=== PATIENT | male | born 1960 | race Caucasian/White ===

== ENCOUNTER 2024-06-23 21:10 | Emergency (ER) | payer OTHER, SELFPAY ==
--- NOTE | 2024-06-23 21:15 | ED.MALEGU ---
HPI - Male Genitourinary General Chief complaint: Urogenital-Male Stated complaint: Can't Urinate Post-Sx Time Seen by Provider: 06/23/24 21:14 History of Present Illness HPI Narrative: 63-year-old male presents with inability to urinate. Had laparoscopic cholecystectomy at [facility] earlier today. He states that he was not been able to urinate since his surgery. This has never happened before. Related Data Previous Rx's Medication Instructions Recorded tamsulosin 0.4 mg capsule 0.4 mg PO DAILY #30 caps 06/23/24 Allergies Allergy/AdvReac Type Severity Reaction Status Date / Time No Known Drug Allergies Allergy Verified 06/23/24 21:22 Patient History Social History Smoking Status: Never smoker Exam Initial Vital Signs Initial Vital Signs: Vital Signs Temperature 98.2 F 06/23/24 21:23 Pulse Rate 102 H 06/23/24 21:23 Respiratory Rate 16 06/23/24 21:23 Blood Pressure 161/93 H 06/23/24 21:23 Pulse Oximetry 97 06/23/24 21:23 Oxygen Delivery Method Room Air 06/23/24 21:23 Const: Awake, alert, no acute distress, nontoxic appearing GI: Soft, Surgical sites clean, dry, intact Skin: Warm, Dry, intact, no rashes Neuro: AO x3, CN II-XII grossly intact, moves all extremities Course Orders Ordered: Discontinued Medications Lidocaine HCl (Lidocaine 2% (Glydo) 6 Ml Gel) 6 ml TOP NOW ONE Stop: 06/23/24 21:27 Last Admin: 06/23/24 21:29 Dose: 6 ml Documented By: MILLIE Vital Signs Vital signs: Vital Signs - 8 hr 06/23/24 21:23 06/23/24 22:22 Temperature 98.2 F 98.2 F Pulse Rate 102 H 83 Respiratory Rate 16 18 Blood Pressure 161/93 H 127/74 Pulse Oximetry 97 97 Oxygen Delivery Method Room Air Room Air MDM - Male Genitourinary MDM Narrative Medical decision making narrative: postoperative urinary retention. Piña placed with drainage of 1 L of clear yellow urine. Patient reports feeling significantly better after Piña placed. Patient was counseled that he would need to keep the catheter in until he is seen by either his surgeon, PCP, or Urology. He was not take Flomax, and he will be started on this medication here in the emergency department. Piña catheter care instructions discussed. Discharge Plan Departure Patient Disposition: Home Clinical Impression: Acute retention of urine Instructions: DI for Urinary Retention in Men Activity Restrictions/Additional Instructions: Take flomax daily. Follow up with your surgeon to see when the catheter can be removed Prescriptions: New tamsulosin 0.4 mg capsule 0.4 mg PO DAILY Qty: 30 0RF Referrals: Dimitrios Briones MD [Physician] - Stand Alone Forms: Patient Portal/API/Survey
[2024-06-23 21:23] VITALS: BP 161/93; PULSE 102; RESP 16; TEMP 36.8; O2SAT 97; BMI 21.8
[2024-06-23] MEDS: LIDOCAINE 2% (GLYDO) 6 ML GEL TOP (21:29)
[2024-06-23 22:22] VITALS: BP 127/74; PULSE 83; RESP 18; TEMP 36.8; O2SAT 97
== END 2024-06-23 22:23 | disposition home or self-care (01) ==
PROVIDERS: Emergency Provider Emergency Medicine
DX: R33.9 Retention of urine, unspecified (principal)
CPT/HCPCS: 51702; 51798; 99283

== ENCOUNTER 2025-02-07 23:28 | Emergency (ER) | payer OTHER, SELFPAY ==
[2025-02-07 23:39] VITALS: BP 142/82; PULSE 69; RESP 16; TEMP 36.4; O2SAT 100; BMI 21.1
--- NOTE | 2025-02-08 00:19 | EKG_ITS ---
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
[2025-02-08 00:53] VITALS: BP 105/64
[2025-02-08 00:54] VITALS: PULSE 54; RESP 20; O2SAT 99
--- NOTE | 2025-02-08 00:54 | DI.CT.S_ITS ---
PROCEDURE: CT ABDOMEN PELVIS W CON INDICATIONS: abd pain, pancreatic mass hx TECHNIQUE: After the administration of intravenous contrast, axial sections acquired from the lung bases to the pubic symphysis. Coronal and sagittal reformats were performed. For radiation dose reduction, the following was used: automated exposure control, adjustment of mA and/or kV according to patient size. COMPARISON: [facility], CT, CT ABDOMEN PANCREATIC PROTOCOL, 03/23/2024, 13:53. FINDINGS: Image quality: Diagnostic. Lower Chest: No significant findings. ABDOMEN: Liver: No solid mass. Gallbladder: Surgically absent. Biliary ducts: No biliary dilation. Pancreas: Ill-defined masslike area within the head/uncinate process with dilatation of the distal pancreatic duct. Spleen: Size is within normal limits. Adrenal Glands: No adrenal nodules. Kidneys and Ureters: No hydronephrosis. No solid mass. No complex renal cystic lesion which requires follow up. Stomach and Bowel: Normal colonic caliber, without significant wall thickening. Moderate to large stool burden. Normal appendix. Peritoneum: No abnormal intraperitoneal fluid. No free air. Mild mesenteric stranding. Ventral Wall: No significant ventral hernia. Abdominal Nodes: Multiple prominent mesenteric lymph nodes appear similar to prior. Vessels: Aorta and inferior vena cava are normal in size. Atherosclerotic vascular calcifications. PELVIS: Pelvic Organs: Prostatomegaly. Bladder: No bladder wall thickening, accounting for underdistention. Pelvic Nodes: No enlarged lymph nodes. Miscellaneous: No inguinal hernias are seen. Bones: No aggressive osseous abnormality. IMPRESSION: 1. Ill-defined masslike area within the head/uncinate process of the pancreas is increased compared to prior. Recommend nonurgent pancreatic protocol CT or MRI for further evaluation. 2. Multiple prominent mesenteric lymph nodes are similar to prior with mild surrounding stranding. Differential includes metastatic disease versus mesenteric panniculitis. Dictated by: Jonah Bajwa M.D. on 02/08/2025 at 1:59 Approved by: Jonah Bajwa M.D. on 02/08/2025 at 2:05
[2025-02-08 01:00] VITALS: BP 108/71; PULSE 58; RESP 24; O2SAT 100
--- NOTE | 2025-02-08 01:04 | PC.NURSE ---
Pt was sitting in hallway chair for IV start. Pt with difficult veins, IV start x 3 unsuccessful. Shortly after, pt became pale, diaphoretic, and woozy. BP 78/45 HR 45. Pt able to stand and transfer to [facility]. Pt roomed, BP improved to 108/71 with HR 58. Pt states he feels better. IV started successfully to L FA.
[2025-02-08 01:06] LABS: Add Manual Diff / Slide Review NO; Hematocrit 42.1 % (41-53); Hemoglobin 14.2 g/dL (13.5-17.5); Lymphocytes Absolute Auto 3200 /uL (1100-4500); Mean Corpuscular HGB Conc 33.8 % (30-36); Mean Corpuscular Hemoglobin 27.4 PG (26-34); Mean Corpuscular Volume 81.1 fL (80-100); Platelet Count 236 X10^3/uL (150-400)
[2025-02-08 01:19] LABS: Alanine Aminotransferase 20 IU/L (<50); Albumin 4.5 g/dL (3.5-5.0); Albumin Globulin Ratio 1.2 (1.0-2.8); Blood Urea Nitrogen 19 mg/dL (9-20); Calcium 9.2 mg/dL (8.4-10.2); Carbon Dioxide 25 mmol/L (22-32); Chloride 103 mmol/L (98-107); Estimated Glomerular Filt Rate > 60 mL/min (>60); Globulin 3.8 g/dL (1.7-4.1); Glucose 118 mg/dL (70-99); Lipase 171 U/L (23-300); Sodium 136 mmol/L (137-145); Total Protein 8.3 g/dL (6.3-8.2)
[2025-02-08 01:26] LABS: HEMOLYSIS 57 (0-50); Potassium 4.0 mmol/L (3.4-5.1)
[2025-02-08 01:27] LABS: Alkaline Phosphatase 78 U/L (38-126)
[2025-02-08 01:30] VITALS: BP 128/72; PULSE 51; O2SAT 100
--- NOTE | 2025-02-08 01:41 | ED_ITS ---
HPI - Abdominal Pain General Chief Complaint: Abdominal Pain Stated Complaint: Abdominal Pain, Back Pain Time Seen by Provider: 02/08/25 00:54 Source: patient Mode of arrival: Ambulatory History of Present Illness HPI narrative: 64-year-old male with history of pancreatic mass first discovered with discomfort epigastrium radiating to the back about one year ago, workup predominantly at [facility] including MRCP and eventually ERCP, had biopsy without confirmation of any cancer, surveillance MRCP being done every 6 months, last MRCP September 2024, has oxycodone to take for this ongoing discomfort, had similar epigastric pain radiating to the back 3 days ago at seemed to get better now with 2 days duration of lower suprapubic bilateral lower abdominal discomfort that feels different. No black or red stools or loose stools. No dysuria or frequency of urination. No testicular pain, no meatal discharge or gross hematuria symptoms. No history of known kidney stones. No history of known prostate problems, prostatitis, prostate enlargement, trouble urinating in the past. No injury trauma or new activities. He took oxycodone that he usually takes for his higher epigastric pain, did not seem to help this lower abdominal pain that is new. Related Data Previous Rx's ?Medication ?Instructions ?Recorded tamsulosin 0.4 mg capsule 0.4 mg PO DAILY #30 caps oxycodone-acetaminophen 7.5 mg-325 1 tab PO Q6H PRN pa in #14 tabs 02/08/25 mg tablet Allergies Allergy/AdvReac Type Severity Reaction Status Date / Time No Known Drug Allergies Allergy Verified 02/07/25 23:44 Exam Narrative Exam Narrative: GENERAL: Well-developed patient, in mild distress. HEAD: Atraumatic. Normocephalic. EYES: Pupils equal round and reactive. Extraocular motions intact. No scleral icterus. No injection or drainage. ENT: Nose without bleeding, purulent drainage. Throat without erythema, tonsillar hypertrophy or exudate. Airway patent. NECK: Trachea midline. Non tender CARDIOVASCULAR: Regular rate and rhythm without murmurs, gallops, or rubs. RESPIRATORY: Clear to auscultation. Breath sounds equal bilaterally. No wheezes, rales, or rhonchi. GASTROINTESTINAL: Abdomen soft, non-tender, nondistended. : Circumcised male genitalia without obvious lesions, no tenderness to right or left testis, no tenderness right or left epididymal region. No obvious inguinal hernia right or left with Valsalva. No skin scrotal or inguinal lymphadenopathy changes or folliculitis like changes. EXTREMITIES: No edema or joint tenderness. BACK: Nontender without deformity or crepitance. No flank tenderness. NEURO: AOx3. Motor functions grossly nonfocal. SKIN: No rash or erythema of visible areas Initial Vital Signs Initial Vital Signs: Vital Signs Temperature 97.5 F L 02/07/25 23:39 Pulse Rate 69 02/07/25 23:39 Respiratory Rate 16 02/07/25 23:39 Blood Pressure 142/82 H 02/07/25 23:39 Pulse Oximetry 100 02/07/25 23:39 Oxygen Delivery Method Room Air 02/07/25 23:39 Course Orders Ordered: ED Orders 02/08/25 00:19 EKG-12 Lead Stat 02/08/25 00:54 CT abdomen pelvis w con Stat 02/08/25 01:00 Complete Blood Count AUTO DIFF Stat Comprehensive Metabolic Panel Stat Lipase Stat Discontinued Medications Hydromorphone HCl (Hydromorphone Hcl 0.5 Mg/0.5 Ml Syringe) 0.5 mg IV NOW ONE Stop: 02/08/25 01:42 Last Admin: 02/08/25 02:05 Dose: 0.5 mg Documented By: VIELKA Sodium Chloride (Normal Saline 0.9%) 1,000 mls @ 1,000 mls/hr IV BOLUS ONE Stop: 02/08/25 02:40 Last Admin: 02/08/25 02:05 Dose: 1,000 mls/hr Documented By: VIELKA Ondansetron HCl (Ondansetron 4 Mg/2 Ml Inj) 4 mg IV NOW PRN PRN Reason: Nausea And Vomiting Ondansetron HCl (Ondansetron 4 Mg Odt) 4 mg PO NOW PRN PRN Reason: Nausea And Vomiting Ondansetron HCl (Ondansetron 4 Mg/2 Ml Inj) 4 mg IV NOW ONE Stop: 02/08/25 01:42 Last Admin: 02/08/25 02:05 Dose: 4 mg Documented By: VIELKA Oxycodone/Acetaminophen (Oxycodone/Acetaminophen 5/325 Tablet) 1 tab PO NOW ONE Stop: 02/08/25 02:29 Last Admin: 02/08/25 02:44 Dose: 1 tab Documented By: VIELKA Vital Signs Vital signs: Vital Signs - 8 hr 02/07/25 23:39 02/08/25 00:53 02/08/25 00:54 Temperature 97.5 F L Pulse Rate 69 54 L Respiratory Rate 16 20 Blood Pressure 142/82 H 105/64 Pulse Oximetry 100 99 Oxygen Delivery Method Room Air 02/08/25 01:00 02/08/25 01:00 02/08/25 01:30 Temperature Pulse Rate 58 L Respiratory Rate 24 Blood Pressure 108/71 128/72 Pulse Oximetry 100 Oxygen Delivery Method 02/08/25 01:30 02/08/25 02:00 02/08/25 02:30 Temperature Pulse Rate 51 L 71 61 Respiratory Rate 22 20 Blood Pressure Pulse Oximetry 100 96 99 Oxygen Delivery Method MDM - Abdominal Pain Lab Data Attestation: I reviewed the patient's lab results. Lab results narrative: White blood cell count 9300, hemoglobin 14.2, platelets adequate. Glucose 118. BUN 19 with creatinine 0.81, serum CO2 25, sodium 136, potassium 4.0. Liver functions normal. Lipase normal. 02/08/25 01:00 02/08/25 01:00 Labs: Lab Results 02/08/25 Range/Units 01:00 WBC 9.3 (4.5-11.0) X10^3/uL RBC 5.19 (4.5-5.9) X10^6/uL Hgb 14.2 (13.5-17.5) g/dL Hct 42.1 (41-53) % MCV 81.1 (80-100) fL MCH 27.4 (26-34) PG MCHC 33.8 (30-36) % RDW 13.5 (11.6-14.8) % Plt Count 236 (150-400) X10^3/uL Neut % (Auto) 52.7 (50-75) % Lymph % (Auto) 34.0 (25-40) % [place] % (Auto) 7.0 (3-14) % Eos % (Auto) 5.7 H (2-4) % Baso % (Auto) 0.6 (0-2) % Neut # (Auto) 4900 (8817-1665) /uL Lymph # (Auto) 3200 (3767-0647) /uL [place] # (Auto) 600 (0-900) /uL Eos # (Auto) 500 H (0-450) /uL Baso # (Auto) 100 (0-100) /uL Sodium 136 L (137-145) mmol/L Potassium 4.0 (3.4-5.1) mmol/L Chloride 103 (98-107) mmol/L Carbon Dioxide 25 (22-32) mmol/L BUN 19 (9-20) mg/dL Creatinine 0.81 (0.66-1.25) mg/dL Estimated GFR > 60 (>60) mL/min BUN/Creatinine Ratio 23.5 H (6-22) Glucose 118 H (70-99) mg/dL Calcium 9.2 (8.4-10.2) mg/dL Total Bilirubin 0.6 (0.2-1.3) mg/dL AST 29 (17-59) IU/L ALT 20 (<50) IU/L Alkaline Phosphatase 78 (38-126) U/L Total Protein 8.3 H (6.3-8.2) g/dL Albumin 4.5 (3.5-5.0) g/dL Globulin 3.8 (1.7-4.1) g/dL Albumin/Globulin Ratio 1.2 (1.0-2.8) Lipase 171 (23-300) U/L Point of care testing: Urine Dip Bedside Urine Glucose Negative Bedside Urine Bilirubin - Negative Bedside Urine Ketone - Negative Urine Specific [place] 1.010 Bedside Urine Occult Blood - Negative Bedside Urine pH 6.0 Bedside Urine Protein - Negative Bedside Urine Urobilinogen - Negative Bedside Urine Nitrite - Negative Bedside Urine Leukocytes - Negative Esterase Imaging Data CT scan - abdomen/pelvis: Radiologist's Impression: [place] [address] CT Scan Report Signed Patient: Garth Brand MR#: [id number] : 1960 Acct:[id number] Age/Sex: 64 / M Date of Service: 02/08/25 Loc: ED Accession Number: [id number] Procedure: CT abdomen pelvis w con Ordering Provider: Garth Higgins MD PROCEDURE: CT ABDOMEN PELVIS W CON INDICATIONS: abd pain, pancreatic mass hx TECHNIQUE: After the administration of intravenous contrast, axial sections acquired from the lung bases to the pubic symphysis. Coronal and sagittal reformats were performed. For radiation dose reduction, the following was used: automated exposure control, adjustment of mA and/or kV according to patient size. COMPARISON: [facility], CT, CT ABDOMEN PANCREATIC PROTOCOL, 03/23/2024, 13:53. FINDINGS: Image quality: Diagnostic. Lower Chest: No significant findings. ABDOMEN: Liver: No solid mass. Gallbladder: Surgically absent. Biliary ducts: No biliary dilation. Pancreas: Ill-defined masslike area within the head/uncinate process with dilatation of the distal pancreatic duct. Spleen: Size is within normal limits. Adrenal Glands: No adrenal nodules. Kidneys and Ureters: No hydronephrosis. No solid mass. No complex renal cystic lesion which requires follow up. Stomach and Bowel: Normal colonic caliber, without significant wall thickening. Moderate to large stool burden. Normal appendix. Peritoneum: No abnormal intraperitoneal fluid. No free air. Mild mesenteric stranding. Ventral Wall: No significant ventral hernia. Abdominal Nodes: Multiple prominent mesenteric lymph nodes appear similar to prior. Vessels: Aorta and inferior vena cava are normal in size. Atherosclerotic vascular calcifications. PELVIS: Pelvic Organs: Prostatomegaly. Bladder: No bladder wall thickening, accounting for underdistention. Pelvic Nodes: No enlarged lymph nodes. Miscellaneous: No inguinal hernias are seen. Bones: No aggressive osseous abnormality. IMPRESSION: 1. Ill-defined masslike area within the head/uncinate process of the pancreas is increased compared to prior. Recommend nonurgent pancreatic protocol CT or MRI for further evaluation. 2. Multiple prominent mesenteric lymph nodes are similar to prior with mild surrounding stranding. Differential includes metastatic disease versus mesenteric panniculitis. Dictated by: Jonah Bajwa M.D. on 02/08/2025 at 1:59 Approved by: Jonah Bajwa M.D. on 02/08/2025 at 2:05 ECG Data Attestation: I personally reviewed and interpreted this ECG as follows: Interpretation: 0027, normal sinus rhythm with rate of 61, no obvious ST segment elevation or depression changes. NJ 140, QRS 80, QTC 390. MDM Narrative Medical decision making narrative: 64-year-old male with history of pancreatic mass, so far no confirmation of any pancreatic cancer, last MRCP surveillance study September 2024 reportedly reassuring, typical epigastric and mid upper back pain symptoms 3 days ago got better, now with new lower abdominal discomfort right and left that feels different. Afebrile, sirs screen negative. Unremarkable examination. EKG sinus rhythm unremarkable. Lab data: White blood cell count 9300, hemoglobin 14.2, platelets adequate. Glucose 118. BUN 19 with creatinine 0.81, serum CO2 25, sodium 136, potassium 4.0. Liver functions normal. Lipase normal. CT abdomen and pelvis. Impressions: ?1. Ill-defined masslike area within the head/uncinate process of the pancreas is increased compared to prior. Recommend nonurgent pancreatic protocol CT or MRI for further evaluation. 2. Multiple prominent mesenteric lymph nodes are similar to prior with mild surrounding stranding. Differential includes metastatic disease versus mesenteric panniculitis. See radiology report. Copy of printed report provided to patient with discussion of findings, possible increased size previous pancreatic mass compared to March [address] Advised to repeat MRI as soon as possible, for comparison to September study. Might need further workup and repeat attempts at biopsy to rule out neoplastic change. Interval increase in head of the pancreas lesion, previous workups reportedly negative. Last MRI screening study was September 2024, due for repeat. Follow up with GI [facility] for repeat MRI to see if increased on MRI study compared to comparison as well. Lower abdominal discomfort perhaps due to mesenteric panniculitis, no antibiotics indicated, anti-inflammatory/analgesics as needed. Follow up with GI providers at [facility] advised. Discharge Plan Departure Patient Disposition: Home Clinical Impression: Abdominal pain, Lesion of pancreas, Mesenteric lymphadenopathy Activity Restrictions/Additional Instructions: History of pancreatic lesion with previous biopsy, and serial MRI studies, no confirmation of any cancer thus far, last MRI abdomen in September 2024 due soon, now having lower abdominal discomfort that is somewhat different in location and quality than previous epigastric higher abdominal pain that radiated to your back. No fever on triage. Screening labs unremarkable. White blood cell count and Liver functions and Lipase not elevated today. MRI study not available at this hour here. CT abdomen and pelvis was performed, with some concern by the Radiology report about in interval change in the pancreatic lesion noted in March 2024 study. There was also prominence of some mesenteric lymph nodes of unclear significance, could be local inflammatory changes, versus metastatic disease. Follow up with your GI providers to have another MRCP study to compare to your most recent September 2024 study, to see if pancreatic lesion is changing with a similar more detailed modality of imaging. Continue taking your oxycodone as needed for pain control. Follow up with your GI/surgical team at [facility] and [facility] regarding your pancreatic lesion as mentioned above. We will give short-term prescription for higher dose oxycodone 7.5 mg mixed with Tylenol, to take in place of your 5 mg strength tablet for now. Contact your regular providers tomorrow to help facilitate urgent MRCP follow up comparison imaging. Return earlier to this/nearest emergency department for any change worsening symptoms or any concerns prior. Prescriptions: New oxycodone-acetaminophen 7.5-325 mg tablet 1 tab PO Q6H PRN (Reason: pain) Qty: 14 0RF No Action tamsulosin 0.4 mg capsule 0.4 mg PO DAILY Qty: 30 0RF Stand Alone Forms: Patient Portal/API
[2025-02-08 02:00] VITALS: PULSE 71; RESP 22; O2SAT 96
[2025-02-08] MEDS: ONDANSETRON 4 MG/2 ML INJ IV (02:05)
[2025-02-08] MEDS: SODIUM CHLORIDE 0.9% 1,000 ML 1000 ML IV (02:05)
[2025-02-08 02:30] VITALS: PULSE 61; RESP 20; O2SAT 99
[2025-02-08] MEDS: OXYCODONE/ACETAMINOPHEN 5/325 TABLET 1 TAB PO (02:44)
== END 2025-02-08 02:51 | disposition home or self-care (01) ==
PROVIDERS: Emergency Provider Emergency Medicine
DX: R10.30 Lower abdominal pain, unspecified (principal); K86.9 Disease of pancreas, unspecified; R59.0 Localized enlarged lymph nodes
CPT/HCPCS: 36415; 74177; 80053; 81003; 83690; 85025; 93005; 96374; 96375; 99284; J1171; J2405; Q9967